=== PATIENT | male | born 1980 | race Caucasian/White ===

== ENCOUNTER → 2021-04-18 | Outpatient (CLI) | payer OTHER, BC ==
--- NOTE | 2021-04-18 12:40 | RAD ---
EXAM: Lumbar spine MRI without contrast. HISTORY: Lower back pain and right-sided sciatica. TECHNIQUE: Multiplanar, multisequence magnetic resonance imaging of the lumbar spine was performed wi thout contrast. COMPARISON: None. FINDINGS: There is minimal lumbar scoliosis and hyperlordosis. There is minimal retrolisthesis of L3 on L4, measuring 2 mm. There is mild multilevel endplate remodeling. There are few osseous hemangioma s. There is no fracture or suspicious osseous lesion. The conus terminates at L1. At L1-L2, there is a minimal disc bulge and endplate remodeling. There is no stenosis. At L2-L3, there is a left foraminal to extra foraminal disc protrusion and annular tear with 2 mm sup erior extrusion superimposed on a mild disc bulge and endplate remodeling. There is mild left foramin al stenosis with abutment of the exiting left L2 nerve root. There is mild narrowing of the left late ral recess. At L3-L4, there is a left foraminal to extra foraminal disc protrusion and annular tear with 4 mm sup erior extrusion superimposed on a mild disc bulge and endplate remodeling. There is moderate left for aminal stenosis with effacement of the exiting left L3 nerve root. At L4-L5, there is a left foraminal to extra foraminal disc protrusion and annular tear superimposed on a disc bulge and endplate remodeling. There is mild left foraminal stenosis with abutment the exit ing left L4 nerve root. At L5-S1, there is a broad-based posterior central to left lateral recess disc protrusion and annular tear superimposed on a disc bulge and endplate remodeling. There is mild narrowing of the left later al recess. IMPRESSION: Multilevel degenerative change involving the lumbar spine, described in detail above. Thi s results in moderate left foraminal stenosis with effacement of the exiting left L3 nerve root at L3 -L4. There is mild left foraminal stenosis with abutment of the exiting left nerve roots and mild burt rowing of the left lateral recess at additional lumbar levels described in detail above. Electronically signed by: Nataly Ruffin MD (04/18/2021 12:38 PM) [id number]
== END ==
LOC: MRI 11:30
PROVIDERS: ATTEND Physical Medicine & Rehabilitation
DX: M47.816 Spondylosis without myelopathy or radiculopathy, lumbar region (principal); M48.061 Spinal stenosis, lumbar region without neurogenic claudication; M54.31 Sciatica, right side
CPT/HCPCS: 72148